=== PATIENT | male | born 1940 | race Caucasian/White ===

== ENCOUNTER 2017-10-23 15:07 | Day surgery (SDC) | payer MEDICARE, BC ==
[2017-10-23] MEDS ORDERED: Sodium Chloride 0.9% 20 ML ONE (15:38)
== END 2017-10-23 15:47 | disposition home or self-care (01) ==
LOC: ONC/OP 15:07
PROVIDERS: ATTEND Internal Medicine Medical Oncology
DX: T82.594A Other mechanical complication of infusion catheter, initial encounter (principal)
CPT/HCPCS: 96523; A4216; J1642

== ENCOUNTER 2018-12-31 09:32 | Emergency (ER) | payer MEDICARE, BC ==
[2018-12-31] MEDS ORDERED: Metoclopramide HCl 10 MG/2 ML VIAL ONE (10:20)
[2018-12-31] MEDS ORDERED: Fentanyl 100 MCG/2 ML VIAL ONE ×2 (10:20→12:30)
[2018-12-31 10:53] LABS: #Eosinphils 0.3 thou/uL (0.0-0.7); #Lymphocytes 0.7 thou/uL (1.20-3.40); #Monocytes 0.8 thou/uL (0.11-0.59); #Neutrophils 7.7 thou/uL (1.40-6.50); %Basophils 0.1 % (0.0-1.0); %Eosinophils 3.4 % (0.0-10.0); %Lymphocytes 7.6 % (21.0-51.0); %Monocytes 7.9 % (0.0-10.0); Hemoglobin 8.9 g/dL (14.0-18.0); Mean Corpuscular HGB CONC 34.5 g/dL (32.0-36.0); Mean Corpuscular Volume 95.7 fL (78.0-98.0); Mean Platelet Volume 6.2 fL (7.4-10.4); Platelet Count 269 thou/uL (130-400); RBC Distribution Width 12.1 % (11.5-14.5); Red Blood Cell (RBC) Count 2.69 mill/uL (4.70-6.10); White Blood Cell (WBC) Count 9.5 thou/uL (4.8-10.8)
--- NOTE | 2018-12-31 11:11 | RAD ---
RIGHT HIP TWO VIEWS: HISTORY: Right hip pain. History of bladder cancer. The patient fell on the right hip Thursday and has not been able to walk since. FINDINGS: The bones are demineralized and difficult to assess. I do not see any signs of fracture. Mild arthr itic change is noted. IMPRESSION: No evidence of fracture. If there is strong clinical suspicion of fracture, further evaluation with CT would be recommended. POS: CET
[2018-12-31 11:21] LABS: ALT (SGPT) 19 U/L (8-55); AST (SGOT) 30 U/L (5-34); Albumin 3.9 g/dL (3.4-4.8); Alkaline Phosphatase 92 U/L (40-150); Anion Gap 17 mmol/L (10-20); BUN (Urea Nitrogen) 33 mg/dL (8.4-25.7); Bilirubin, Total 0.4 mg/dL (0.2-1.2); Calc. Creatinine Clearance 0 mL/min (70-130); Calcium 9.6 mg/dL (7.8-10.44); Carbon Dioxide 25 mmol/L (23-31); Chloride 94 mmol/L (98-107); Estimated GFR-MDRD 59; Globulin 3.4 g/dL (2.4-3.5); Glucose 89 mg/dL (83-110); Lipase 8 U/L (8-78); Potassium 4.2 mmol/L (3.5-5.1); Protein, Total 7.3 g/dL (5.8-8.1); Sodium 132 mmol/L (136-145)
--- NOTE | 2018-12-31 11:33 | CT ---
ABDOMEN CT WITHOUT CONTRAST PELVIC CT WITHOUT CONTRAST: HISTORY: Bladder cancer with metastases. Right hip pain. Nausea. COMPARISON: None. FINDINGS: Abdomen CT: Chronic changes in the left lung base. Normal heart size. No significant pericardial fluid. Visualized aorta has a normal caliber. There is periaortic fat stranding. There are some borderline periaortic lymph nodes. Symmetric attenuation of psoas muscles. Unremarkable gallbladder. Limited evaluation of the solid organs due to lack of IV contrast. Grossly the spleen, pancreas, and adrenal glands are unremarkable. Multiple ill-defined hypodensities in the liver. Ticket Sales Supervisor hypodensity in the anterior segment o f the right hepatic lobe measures 2.6 x 2.3 cm and posterior segment of the right hepatic lobe measures 2.8 x 2.5 cm. Multifocal hepatic metastases is suspected. No gastrohepatic, retrocrural or periportal lymphadenopathy. No mesenteric mass, lymphadenopathy or free air. A small amount of free fluid. Limited evaluation of the alimentary canal by the lack of oral contrast. No evidence of bowel obstruction. Ileal conduit in the right lower quadrant is noted. There is a solitary right ureter with the associated right kidney that anastomosis with the ileal conduit. Left kidney is not appreciated. CT PELVIS: Absent bladder. Stranding of the pelvic presacral fat, nonspecific. No pelvic mass, nephropathy, or f ree air. Enlarged bilateral inguinal lymph nodes. Right inguinal lymph node measures 1.5 x 1.8 cm. Left inguin al lymph node measures 2.4 x 1.7 and 1.9 x 1.7 cm. There appears to be an osseous metastatic focus involving the right superior pubic ramus. Contour of both femoral heads is maintained. Symmetric hip joint spaces. IMPRESSION: 1. Osseous metastases involving the right superior pubic ramus. 2. Metastases involving the liver. 3. Metastases involving bilateral inguinal lymph nodes. 4. Findings compatible with the ileal conduit. Decompressed right intra- and extrarenal collecting s ystem. Absent left kidney and ureter. Correlate clinically. 5. Absent urinary bladder. Transcribed Date/Time: 12/31/2018 12:13 PM
--- NOTE | 2018-12-31 12:41 | CT ---
CT LUMBAR SPINE WITHOUT CONTRAST ENHANCEMENT: HISTORY: The patient has a history of bladder cancer with metastatic disease. Complaining of back and right h ip pain. FINDINGS: The bones appear demineralized. There are some prominent Schmorl's node changes involving the superi or and inferior endplates of L2 with some resultant loss of vertebral body height at this level. The disk spaces are relatively well preserved. There is disk narrowing and vacuum disk phenomenon at th e L1-L2 level. Degenerative facet changes are present. There is no significant periaortic adenopath y. The left kidney appears to be absent. T11-T12: The canal appears borderline narrow. T12-L1: No significant canal or foraminal stenosis. L1-L2: Borderline canal narrowing, related to facet hypertrophic changes. L2-L3: There is a mild to moderate degree of canal stenosis. Differentiation between the thecal sac disk and ligamentous changes is difficult at this level. No foraminal narrowing. L3-L4: There appears to be moderate canal stenosis at this level. Again, differentiation between di sk and thecal sac is difficult. No significant foraminal narrowing. L4-L5: Annular disk bulge at this level. There are postop laminotomy changes seen. No significant foraminal stenosis is appreciated. L5-S1: No significant canal or foraminal narrowing. IMPRESSION: 1. Diffuse bony demineralization. 2. Areas of mild to moderate stenosis at the L2-L3 and L3-L4 levels. POS: CET
[2018-12-31] MEDS ORDERED: Morphine 4 MG/ML VIAL ONE (14:10)
--- NOTE | 2019-01-01 11:22 | EKG ---
Test Reason : Blood Pressure : / mmHG Vent. Rate : 067 BPM Atrial Rate : 067 BPM P-R Int : 148 ms QRS Dur : 090 ms QT Int : 452 ms P-R-T Axes : 035 -12 047 degrees QTc Int : 477 ms Normal sinus rhythm Possible Left atrial enlargement Left ventricular hypertrophy Abnormal ECG Confirmed by RUFINO NICHOLAS DO ([id number]), newspaper copy editor JOANN GAMINO ([id number]) on 01/01/2019 11:22:03 AM Referred By: Confirmed By:RUFINO NICHOLAS DO
== END 2018-12-31 14:20 | disposition home or self-care (01) ==
LOC: ERS 09:32
DX: M25.551 Pain in right hip (principal); C41.4 Malignant neoplasm of pelvic bones, sacrum and coccyx; I10 Essential (primary) hypertension; Z79.899 Other long term (current) drug therapy
CPT/HCPCS: 72131; 74176; 80053; 83690; 85025; 93005; 96365; 96375; 96376; J2270; J2765; J3010